=== PATIENT | male | born 1935 | race Caucasian/White ===

== ENCOUNTER 2020-12-19 16:03 | Inpatient (IN) ==
[2020-12-19 16:34] LABS: Basophils % 0.1 %; Eosinophils % 0.3 %; Hematocrit 32.8 % (37.5-50.1); Hemoglobin 10.4 g/dL (12.9-16.9); Immature Granulocytes % 0.7 % (0-4); Lymphocytes # 0.7 K/mcL (0.6-4.6); Lymphocytes % 5.3 %; Mean Corpuscular HGB Conc 31.7 g/dL (31.6-35.5); Mean Corpuscular Hemoglobin 29.5 pg (28.0-33.3); Mean Corpuscular Volume 93.2 fL (83.0-100.0); Mean Platelet Volume 12.9 fL (9.4-12.4); Monocytes # 1.2 K/mcL (0.0-1.3); Monocytes % 8.6 %; Neutrophils # 11.6 K/mcL (1.6-8.9); Platelet Count 130 K/mcL (140-400); Red Blood Count 3.52 M/mcL (4.19-5.50); Red Cell Distribution Width 15.9 % (11.5-14.5); White Blood Count 13.7 K/mcL (4.3-11.1)
[2020-12-19] MEDS ORDERED: Cefepime HCl 1,000 MG in Water for inj. (sterile) 10 ML IVP ONE (16:39)
[2020-12-19 16:42] LABS: INR 1.7; Prothrombin Time 19.1 Seconds (9.4-12.1)
[2020-12-19 16:56] LABS: Albumin 3.9 g/dL (3.5-5.7); Albumin/Globulin Ratio 1.6 (1.1-2.2); Bilirubin,Total 0.7 mg/dL (0.3-1.0); Calcium 9.2 mg/dL (8.6-10.3); Globulin 2.5 g/dL (2.4-3.5); Potassium 3.6 mEq/L (3.5-5.1); Total Protein 6.4 g/dL (6.4-8.9)
[2020-12-19] MEDS ORDERED: 0.9 % Sodium Chloride 500 ML IV ONE (19:34)
[2020-12-19] MEDS ORDERED: Acetaminophen 325 MG TABLET PO PRN (19:54)
[2020-12-19] MEDS ORDERED: Naloxone 0.4 MG/ML INJ IVP PRN (19:54)
[2020-12-19] MEDS ORDERED: Ondansetron 4 MG/2 ML VIAL IVP PRN (19:54)
[2020-12-19] MEDS ORDERED: D5% in Water 1,000 ML IVC PRN (21:37)
[2020-12-19] MEDS ORDERED: *HR* Dextrose 50 % in Water (Syg) 50 ML SYRINGE IVP PRN (21:37)
[2020-12-19] MEDS ORDERED: Dextrose Gel 15 GM/37.5 ML TUBE PO PRN ×2 (21:37)
[2020-12-19] MEDS ORDERED: Vancomycin 500 MG in 0.9 % Sodium Chloride Mini Bag 100 ML IVPB ONE (22:00)
[2020-12-19] MEDS: Insulin LISPRO 300 UNITS/3 ML VIAL SUBQ SCH (23:14)
[2020-12-20] MEDS ORDERED: Cefepime HCl 2,000 MG in 0.9 % Sodium Chloride Mini Bag 100 ML IVPB SCH
[2020-12-20] MEDS: Azithromycin 500 MG in 0.9 % Sodium Chloride 250 ML IVPB SCH ×2 (00:52→23:49)
[2020-12-20] MEDS: Piperacillin/Tazobactam 3.375 GM in 0.9 % Sodium Chloride Mini Bag 100 ML IVPB SCH ×3 (02:42→15:40)
[2020-12-20 06:21] LABS: Hemoglobin 10.2 g/dL (12.9-16.9)
[2020-12-20 06:23] LABS: Hematocrit 31.4 % (37.5-50.1); Immature Platelets 6.7 % (1.1-6.1); Mean Corpuscular HGB Conc 32.5 g/dL (31.6-35.5); Mean Corpuscular Hemoglobin 29.7 pg (28.0-33.3); Mean Corpuscular Volume 91.5 fL (83.0-100.0); Mean Platelet Volume 12.8 fL (9.4-12.4); Red Blood Count 3.43 M/mcL (4.19-5.50); Red Cell Distribution Width 15.6 % (11.5-14.5); White Blood Count 11.3 K/mcL (4.3-11.1)
[2020-12-20 06:43] LABS: Potassium 3.1 mEq/L (3.5-5.1)
[2020-12-20] MEDS ORDERED: *HR* Dextrose 50 % in Water (Syg) 50 ML SYRINGE IVP ONE (07:35)
[2020-12-20] MEDS: Insulin LISPRO 300 UNITS/3 ML VIAL SUBQ SCH ×3 (07:51→16:47)
[2020-12-20] MEDS ORDERED: Nitroglycerin 0.4 MG TAB.SUBL SL PRN (16:24)
[2020-12-20] MEDS ORDERED: Simethicone 80 MG TAB.CHEW PO PRN (16:24)
[2020-12-20] MEDS: carvediloL 6.25 MG TABLET PO SCH (17:10)
[2020-12-20] MEDS: 0.9 % Sodium Chloride 1,000 ML IVC SCH (17:29)
[2020-12-20] MEDS: VISINE TEARS DROPS 15 ML BOTH EYES SCH ×2 (18:42→20:42)
[2020-12-20] MEDS: Carbidopa/Levodopa 25/100 TABLET PO SCH (20:35)
[2020-12-20] MEDS: Lactobacillus 1 EACH CAP.SPRINK PO SCH (20:35)
[2020-12-20] MEDS: allopurinoL 100 MG TABLET PO SCH (20:35)
[2020-12-20] MEDS: Pregabalin 75 MG CAPSULE PO SCH (20:35)
[2020-12-21] MEDS: Piperacillin/Tazobactam 3.375 GM in 0.9 % Sodium Chloride Mini Bag 100 ML IVPB SCH ×4 (00:53→22:53)
[2020-12-21 05:24] LABS: Basophils % 0.2 %; Eosinophils # 0.5 K/mcL (0.0-0.6); Eosinophils % 5.4 %; Hematocrit 33.3 % (37.5-50.1); Hemoglobin 10.7 g/dL (12.9-16.9); Immature Granulocytes % 0.2 % (0-4); Lymphocytes # 0.9 K/mcL (0.6-4.6); Lymphocytes % 9.6 %; Mean Corpuscular HGB Conc 32.1 g/dL (31.6-35.5); Mean Corpuscular Hemoglobin 29.2 pg (28.0-33.3); Mean Platelet Volume 12.9 fL (9.4-12.4); Monocytes # 0.9 K/mcL (0.0-1.3); Monocytes % 10.3 %; Neutrophils # 6.6 K/mcL (1.6-8.9); Platelet Count 133 K/mcL (140-400); Red Blood Count 3.66 M/mcL (4.19-5.50); Red Cell Distribution Width 15.5 % (11.5-14.5); Segmented Neutrophils % 74.3 %; White Blood Count 8.9 K/mcL (4.3-11.1)
[2020-12-21 05:44] LABS: Calcium 8.9 mg/dL (8.6-10.3); Magnesium 1.9 mg/dL (1.6-2.6); Potassium 3.4 mEq/L (3.5-5.1)
[2020-12-21 05:56] LABS: Estimated Average Glucose 171 mg/dl; Hemoglobin A1C 7.6 %
[2020-12-21 05:57] LABS: Thyroid Stimulating Hormone 1.841 mcIU/mL (0.340-5.600)
[2020-12-21 05:59] LABS: Triiodothyronine (T3) Free 2.39 pg/mL (2.50-3.90)
[2020-12-21] MEDS: 0.9 % Sodium Chloride 1,000 ML IVC SCH (08:47)
[2020-12-21] MEDS: carvediloL 6.25 MG TABLET PO SCH ×2 (08:48→16:28)
[2020-12-21] MEDS: allopurinoL 100 MG TABLET PO SCH ×2 (08:49→20:41)
[2020-12-21] MEDS: Carbidopa/Levodopa 25/100 TABLET PO SCH ×3 (08:49→20:41)
[2020-12-21] MEDS: Cholecalciferol (D-3) 1,000 UNIT (25MCG) TABLET PO SCH (08:49)
[2020-12-21] MEDS: Lactobacillus 1 EACH CAP.SPRINK PO SCH ×2 (08:50→20:40)
[2020-12-21] MEDS: Finasteride 5 MG TABLET PO SCH (08:50)
[2020-12-21] MEDS: Multivit/Ca/Min/Fe/FA 1 TAB TABLET PO SCH (08:50)
[2020-12-21] MEDS: Isosorbide MONOnitrate (24 HR) 60 MG TAB.ER.24H PO SCH (08:50)
[2020-12-21] MEDS: Pregabalin 75 MG CAPSULE PO SCH ×2 (08:50→20:40)
[2020-12-21] MEDS: Insulin LISPRO 300 UNITS/3 ML VIAL SUBQ SCH ×3 (08:55→17:02)
[2020-12-21] MEDS: VISINE TEARS DROPS 15 ML BOTH EYES SCH ×4 (08:56→20:42)
[2020-12-21 10:45] LABS: Bilirubin,Urine Negative (Negative); Blood,Urine Negative (Negative); Clarity,Urine Clear (Clear); Color,Urine Light-Yellow (Yellow); Glucose,Urine (UA) Normal (Normal); Ketones,Urine Negative (Negative); Leukocyte Esterase,Urine Small (Negative); Mucus,Urine Few per lpf (None-Few); Nitrite,Urine Negative (Negative); PH,Urine 6.5 pH Units (5.0-8.0); Protein,Urine Negative (Neg-Trace); RBC,Urine 0-3 per hpf (0-3); Specific Gravity,Urine 1.014 (1.010-1.025); Squamous Epithelial Cell,Urine Few per hpf (None-Few); Urobilinogen,Urine Normal (Normal)
[2020-12-21] MEDS: Famotidine 20 MG TABLET PO SCH (20:40)
[2020-12-21] MEDS: Apixaban 5 MG TABLET PO SCH (20:40)
[2020-12-21] MEDS ORDERED: Famotidine 20 MG TABLET PO SCH (21:00)
[2020-12-21] MEDS ORDERED: Vancomycin 1,250 MG/262.5 ML IV.SOLN IVPB ONE (21:00)
[2020-12-22] MEDS: 0.9 % Sodium Chloride 1,000 ML IVC SCH ×3 (03:43→17:31)
[2020-12-22 08:18] LABS: Basophils % 0.3 %; Immature Granulocytes % 0.3 % (0-4)
[2020-12-22 08:20] LABS: Eosinophils # 0.6 K/mcL (0.0-0.6); Eosinophils % 5.3 %; Hematocrit 36.3 % (37.5-50.1); Hemoglobin 11.8 g/dL (12.9-16.9); Immature Platelets 6.5 % (1.1-6.1); Lymphocytes % 9.3 %; Mean Corpuscular HGB Conc 32.5 g/dL (31.6-35.5); Mean Corpuscular Hemoglobin 30.4 pg (28.0-33.3); Mean Corpuscular Volume 93.6 fL (83.0-100.0); Mean Platelet Volume 13.7 fL (9.4-12.4); Monocytes % 9.4 %; Platelet Count 123 K/mcL (140-400); Red Blood Count 3.88 M/mcL (4.19-5.50); Red Cell Distribution Width 15.4 % (11.5-14.5); Segmented Neutrophils % 75.4 %; White Blood Count 10.6 K/mcL (4.3-11.1)
[2020-12-22] MEDS: Pregabalin 75 MG CAPSULE PO SCH ×2 (08:20→20:50)
[2020-12-22] MEDS: Famotidine 20 MG TABLET PO SCH ×2 (08:20→20:51)
[2020-12-22] MEDS: Multivit/Ca/Min/Fe/FA 1 TAB TABLET PO SCH (08:24)
[2020-12-22] MEDS: Cholecalciferol (D-3) 1,000 UNIT (25MCG) TABLET PO SCH (08:24)
[2020-12-22] MEDS: Apixaban 5 MG TABLET PO SCH ×2 (08:34→20:51)
[2020-12-22] MEDS: carvediloL 6.25 MG TABLET PO SCH (08:37)
[2020-12-22] MEDS: Lactobacillus 1 EACH CAP.SPRINK PO SCH ×2 (08:39→20:51)
[2020-12-22] MEDS: Carbidopa/Levodopa 25/100 TABLET PO SCH ×3 (08:39→20:51)
[2020-12-22] MEDS: Isosorbide MONOnitrate (24 HR) 60 MG TAB.ER.24H PO SCH (08:40)
[2020-12-22] MEDS: allopurinoL 100 MG TABLET PO SCH ×2 (08:40→20:51)
[2020-12-22] MEDS: Finasteride 5 MG TABLET PO SCH (08:40)
[2020-12-22 08:41] LABS: Potassium 4.4 mEq/L (3.5-5.1)
[2020-12-22 08:42] LABS: Calcium 9.1 mg/dL (8.6-10.3); Magnesium 2.1 mg/dL (1.6-2.6)
[2020-12-22] MEDS: VISINE TEARS DROPS 15 ML BOTH EYES SCH ×4 (08:44→20:56)
[2020-12-22] MEDS: Piperacillin/Tazobactam 3.375 GM in 0.9 % Sodium Chloride Mini Bag 100 ML IVPB SCH ×3 (08:48→23:42)
[2020-12-22] MEDS: Insulin LISPRO 300 UNITS/3 ML VIAL SUBQ SCH ×4 (08:58→20:52)
[2020-12-22] MEDS: Budesonide/Formoterol 160/4.5 1 PUFF INH IH SCH (20:19)
[2020-12-22] MEDS: Ipratropium/Albuterol Neb 3 ML IH PRN (20:19)
[2020-12-22] MEDS: Vancomycin 1,250 MG/262.5 ML IV.SOLN IVPB SCH (21:05)
[2020-12-23] MEDS: Ipratropium/Albuterol Neb 3 ML IH PRN (01:04)
[2020-12-23] MEDS ORDERED: Saline Nasal Spray 44 ML BOTTLE NS PRN (01:30)
[2020-12-23] MEDS ORDERED: Tiotropium 10 INH DOSE IH ONE (03:36)
[2020-12-23 05:50] LABS: Basophils % 0.2 %; Eosinophils # 0.3 K/mcL (0.0-0.6); Hematocrit 35.5 % (37.5-50.1); Hemoglobin 11.2 g/dL (12.9-16.9); Immature Granulocytes % 0.5 % (0-4); Lymphocytes # 0.7 K/mcL (0.6-4.6); Lymphocytes % 5.2 %; Mean Corpuscular HGB Conc 31.5 g/dL (31.6-35.5); Mean Corpuscular Hemoglobin 29.6 pg (28.0-33.3); Mean Corpuscular Volume 93.9 fL (83.0-100.0); Mean Platelet Volume 12.5 fL (9.4-12.4); Monocytes # 1.2 K/mcL (0.0-1.3); Monocytes % 9.4 %; Neutrophils # 10.7 K/mcL (1.6-8.9); Platelet Count 130 K/mcL (140-400); Red Blood Count 3.78 M/mcL (4.19-5.50); Red Cell Distribution Width 15.2 % (11.5-14.5); Segmented Neutrophils % 82.7 %; White Blood Count 12.9 K/mcL (4.3-11.1)
[2020-12-23 06:12] LABS: Calcium 8.8 mg/dL (8.6-10.3); Potassium 3.8 mEq/L (3.5-5.1)
[2020-12-23] MEDS: Budesonide/Formoterol 160/4.5 1 PUFF INH IH SCH ×2 (07:51→20:00)
[2020-12-23] MEDS: 0.9 % Sodium Chloride 1,000 ML IVC SCH (07:57)
[2020-12-23] MEDS: Insulin LISPRO 300 UNITS/3 ML VIAL SUBQ SCH ×4 (08:01→22:40)
[2020-12-23] MEDS: Pregabalin 75 MG CAPSULE PO SCH ×2 (08:02→22:28)
[2020-12-23] MEDS: Isosorbide MONOnitrate (24 HR) 60 MG TAB.ER.24H PO SCH (08:02)
[2020-12-23] MEDS: Finasteride 5 MG TABLET PO SCH (08:03)
[2020-12-23] MEDS: Multivit/Ca/Min/Fe/FA 1 TAB TABLET PO SCH (08:03)
[2020-12-23] MEDS: Famotidine 20 MG TABLET PO SCH ×2 (08:03→22:28)
[2020-12-23] MEDS: Cholecalciferol (D-3) 1,000 UNIT (25MCG) TABLET PO SCH (08:03)
[2020-12-23] MEDS: Carbidopa/Levodopa 25/100 TABLET PO SCH ×3 (08:04→22:27)
[2020-12-23] MEDS: allopurinoL 100 MG TABLET PO SCH ×2 (08:04→22:27)
[2020-12-23] MEDS: Torsemide 20 MG TABLET PO SCH ×2 (08:04→16:41)
[2020-12-23] MEDS: Apixaban 5 MG TABLET PO SCH ×2 (08:04→22:28)
[2020-12-23] MEDS: Lactobacillus 1 EACH CAP.SPRINK PO SCH ×2 (08:05→22:27)
[2020-12-23] MEDS: Piperacillin/Tazobactam 3.375 GM in 0.9 % Sodium Chloride Mini Bag 100 ML IVPB SCH ×2 (08:07→16:40)
[2020-12-23] MEDS ORDERED: Tiotropium 10 INH DOSE IH SCH (09:00)
[2020-12-23] MEDS: VISINE TEARS DROPS 15 ML BOTH EYES SCH ×3 (11:23→16:41)
[2020-12-23] MEDS ORDERED: Ipratropium/Albuterol Neb 3 ML IH SCH (12:15)
[2020-12-23] MEDS ORDERED: Furosemide 20 MG/2 ML VIAL IVP ONE (13:21)
[2020-12-23 13:42] LABS: Thyroglobulin Antibody <0.9 IU/mL (0.0-4.0)
[2020-12-23] MEDS: Insulin DETEMIR 100 UNIT/ML X5UNITS SUBQ SCH (13:51)
[2020-12-23] MEDS: Levalbuterol Neb 0.63 MG/3 ML IH SCH ×3 (15:31→19:59)
[2020-12-23 15:33] LABS: INR 1.6
[2020-12-23 17:45] LABS: RBC,Pleural Fluid < 2000 RBC/mcL
[2020-12-23 18:46] LABS: Appearance of Pleural Fl Clear (Clear); Basophils,Pleural Fluid 0 %; Eosinophils,Pleural Fluid 0 %
[2020-12-23] MEDS: Vancomycin 1,250 MG/262.5 ML IV.SOLN IVPB SCH (22:39)
[2020-12-24] MEDS: Levalbuterol Neb 0.63 MG/3 ML IH SCH ×3 (04:23→15:51)
[2020-12-24 04:43] LABS: Basophils % 0.2 %; Mean Corpuscular Volume 90.2 fL (83.0-100.0); Red Cell Distribution Width 14.9 % (11.5-14.5)
[2020-12-24] MEDS: VISINE TEARS DROPS 15 ML BOTH EYES SCH ×3 (04:43→12:45)
[2020-12-24 04:45] LABS: Eosinophils # 0.2 K/mcL (0.0-0.6); Eosinophils % 2.7 %; Hematocrit 28.6 % (37.5-50.1); Hemoglobin 9.5 g/dL (12.9-16.9); Immature Granulocytes % 0.2 % (0-4); Immature Platelets 4.9 % (1.1-6.1); Lymphocytes # 0.9 K/mcL (0.6-4.6); Lymphocytes % 10.7 %; Mean Corpuscular HGB Conc 33.2 g/dL (31.6-35.5); Mean Platelet Volume 12.6 fL (9.4-12.4); Monocytes # 0.8 K/mcL (0.0-1.3); Neutrophils # 6.6 K/mcL (1.6-8.9); Platelet Count 119 K/mcL (140-400); Red Blood Count 3.17 M/mcL (4.19-5.50); Segmented Neutrophils % 77.2 %; White Blood Count 8.5 K/mcL (4.3-11.1)
[2020-12-24 04:52] LABS: Calcium 8.6 mg/dL (8.6-10.3); Potassium 3.4 mEq/L (3.5-5.1)
[2020-12-24] MEDS: Piperacillin/Tazobactam 3.375 GM in 0.9 % Sodium Chloride Mini Bag 100 ML IVPB SCH (04:55)
[2020-12-24] MEDS: Budesonide/Formoterol 160/4.5 1 PUFF INH IH SCH (08:02)
[2020-12-24] MEDS ORDERED: Potassium Chloride 40 MEQ, Lidocaine 1% 2 ML in 0.9 % Sodium Chloride 500 ML IVPB ONE (08:04)
[2020-12-24] MEDS: Insulin LISPRO 300 UNITS/3 ML VIAL SUBQ SCH ×2 (08:19→11:34)
[2020-12-24] MEDS: Multivit/Ca/Min/Fe/FA 1 TAB TABLET PO SCH (08:20)
[2020-12-24] MEDS: Apixaban 5 MG TABLET PO SCH (08:20)
[2020-12-24] MEDS: Pregabalin 75 MG CAPSULE PO SCH (08:20)
[2020-12-24] MEDS: Torsemide 20 MG TABLET PO SCH (08:20)
[2020-12-24] MEDS: Cholecalciferol (D-3) 1,000 UNIT (25MCG) TABLET PO SCH (08:20)
[2020-12-24] MEDS: Lactobacillus 1 EACH CAP.SPRINK PO SCH (08:20)
[2020-12-24] MEDS: Finasteride 5 MG TABLET PO SCH (08:21)
[2020-12-24] MEDS: Carbidopa/Levodopa 25/100 TABLET PO SCH ×2 (08:21→16:21)
[2020-12-24] MEDS: allopurinoL 100 MG TABLET PO SCH (08:21)
[2020-12-24] MEDS: Isosorbide MONOnitrate (24 HR) 60 MG TAB.ER.24H PO SCH (08:21)
[2020-12-24] MEDS: Famotidine 20 MG TABLET PO SCH (08:22)
[2020-12-24] MEDS: Insulin DETEMIR 100 UNIT/ML X5UNITS SUBQ SCH (08:30)
[2020-12-24] MEDS ORDERED: Doxycycline 100 MG CAPSULE PO SCH (11:30)
[2020-12-24] MEDS ORDERED: Piperacillin/Tazobactam 3.375 GM in 0.9 % Sodium Chloride Mini Bag 100 ML IVPB SCH (12:00)
[2020-12-24 14:14] VITALS: BP 129/54; PULSE 59; TEMP 98.3; O2SAT 98
[2020-12-25] MEDS ORDERED: Insulin DETEMIR 100 UNIT/ML X5UNITS SUBQ SCH (09:00)
== END 2020-12-24 16:28 | disposition left against medical advice (07) | DRG 871 ==
LOC: 3ANU 16:03 → EMEROOARM 16:03 → SUATTDRO 21:22 → 3ANU 22:05 → SUATTDRO 12-21 18:36
PROVIDERS: ADMIT Student in an Organized Health Care Education/Training Program; ATTEND Internal Medicine